=== PATIENT | female | born 1960 | race African-American/Black ===

== ENCOUNTER 2019-01-27 15:18 | Inpatient (IN) | payer MEDICAID ==
[~2019-01-27] VITALS: Ht 154.9 cm; Wt 164.7 kg
[2019-01-27 16:57] LABS: CHLORIDE 105 mEq/L (98-107)
[2019-01-27 16:58] LABS: BASOPHILS % 0.5 % (0.0-2.0); EOSINOPHILS % 1.1 % (0.0-5.0); HEMATOCRIT. 35.1 % (36.0-48.0); HEMOGLOBIN. 10.9 g/dL (12.0-16.0); LYMPHOCYTES % 26.4 % (20.0-50.0); MEAN CORPUSCULAR HEMOGLOBIN 23.8 pg (28.0-32.0); MEAN CORPUSCULAR VOLUME 76.9 fL (81.0-99.0); MEAN PLATELET VOLUME 9.1 fl (7.4-10.4); PLATELET 298 x1000/uL (130-400); RED BLOOD CELL COUNT 4.57 mill/uL (4.2-5.4); RED CELL DISTRIBUTION WIDTH 17.2 % (11.6-14.6)
[2019-01-27] MEDS ORDERED: MORPHINE SULFATE 4 MG/ML CPJ (NOT FOR IM USE) IV ONE (20:30)
[2019-01-27] MEDS ORDERED: ONDANSETRON HCL 4MG/2ML INJ IV ONE (20:30)
[2019-01-27] MEDS ORDERED: IOHEXOL-350 100 ML BOTTLE ONE (20:32)
[2019-01-27] MEDS ORDERED: HYDROMORPHONE HCL/PF 2MG/ML CPJ IV NR (23:00)
[2019-01-28] MEDS ORDERED: HYDROMORPHONE HCL/PF 2MG/ML CPJ IV ONE ×2 (02:30→05:45)
[2019-01-28] MEDS ORDERED: VANCOMYCIN 1 G PREMIX 200 ML IV NR (02:45)
[2019-01-28] MEDS ORDERED: IOHEXOL-300 100 ML BOTTLE ONE (03:58)
[2019-01-28] MEDS ORDERED: IOHEXOL-350 100 ML BOTTLE ONE (03:59)
[2019-01-28 08:00] VITALS: BP 149/85
[2019-01-28] MEDS ORDERED: ENOXAPARIN 40MG/0.4ML SYR SUBCUT SCH (10:00)
[2019-01-28] MEDS ORDERED: GUAIFENESIN 200MG/10ML SUGAR FREE UDC PO PRN (10:00)
[2019-01-28] MEDS ORDERED: LORAZEPAM 0.5MG TABLET PO PRN (10:00)
[2019-01-28] MEDS ORDERED: DIPHENHYDRAMINE 50MG/ML VIAL IV PRN (10:00)
[2019-01-28] MEDS ORDERED: MAGNESIUM/ALUMINUM HYDROXIDE/SIMETHICONE 30ML UDC PO PRN (10:00)
[2019-01-28] MEDS ORDERED: NITROGLYCERIN 0.4MG TABLET SL SL PRN (10:00)
[2019-01-28] MEDS ORDERED: IPRATROPIUM/ALBUTEROL 0.5-3(2.5)MG/3ML NEB INH PRN (10:00)
[2019-01-28] MEDS ORDERED: ACETAMINOPHEN 325MG TABLET PO PRN (10:00)
[2019-01-28] MEDS ORDERED: DOCUSATE SODIUM 100MG CAPSULE PO PRN (10:00)
[2019-01-28 10:03] VITALS: BP 149/85
[2019-01-28 10:35] LABS: HEMATOCRIT 36.2 % (36.0-48.0); HEMOGLOBIN 11.1 g/dL (12.0-16.0); MEAN CORPUSCULAR HEMOGLOBIN 23.7 pg (28.0-32.0); MEAN CORPUSCULAR VOLUME 77.1 fL (81.0-99.0); PLATELET 254 x1000/uL (130-400); RED BLOOD CELL COUNT 4.69 mill/uL (4.2-5.4); RED CELL DISTRIBUTION WIDTH 17.3 % (11.6-14.6)
[2019-01-28] MEDS: FAMOTIDINE 20MG TABLET PO SCH ×2 (10:55→20:27)
[2019-01-28] MEDS: GUAIFENESIN 600MG ER TABLET PO SCH ×2 (10:55→20:27)
[2019-01-28] MEDS: ENOXAPARIN 40MG/0.4ML SYR SUBCUT SCH ×2 (10:56→20:27)
[2019-01-28] MEDS: KETOROLAC 30MG/ML VIAL IV PRN ×3 (10:57→23:20)
[2019-01-28] MEDS: BACLOFEN 20MG TABLET PO SCH ×3 (10:58→21:17)
[2019-01-28 12:09] VITALS: BP 144/84
[2019-01-28] MEDS ORDERED: IBUP-2030 MT (12:37)
[2019-01-28] MEDS ORDERED: METH500T6 MT (12:38)
[2019-01-28] MEDS ORDERED: DICL75TA5 MT (12:39)
[2019-01-28 13:50] LABS: FOLIC ACID (FOLATE) SERUM 17.9 ng/mL (>5.38)
[2019-01-28 15:35] VITALS: BP 138/86
[2019-01-28] MEDS ORDERED: ALBU05 IH (16:28)
[2019-01-28 20:00] VITALS: BP 150/80
[2019-01-28] MEDS ORDERED: ZOLPIDEM TARTRATE 5MG TABLET PO PRN (21:00)
[2019-01-29] VITALS: BP 133/55
[2019-01-29 04:00] VITALS: BP 123/63
[2019-01-29] MEDS: BACLOFEN 20MG TABLET PO SCH ×3 (05:46→21:43)
[2019-01-29] MEDS: KETOROLAC 30MG/ML VIAL IV PRN ×3 (07:30→20:27)
[2019-01-29 08:00] VITALS: BP 130/82
[2019-01-29] MEDS: LACTULOSE 20G/30ML UDC PO SCH (08:35)
[2019-01-29] MEDS: GUAIFENESIN 600MG ER TABLET PO SCH ×2 (08:35→20:26)
[2019-01-29] MEDS: ENOXAPARIN 40MG/0.4ML SYR SUBCUT SCH ×2 (08:35→20:28)
[2019-01-29] MEDS: FAMOTIDINE 20MG TABLET PO SCH ×2 (08:35→20:26)
[2019-01-29] MEDS: FERROUS SULFATE 300MG/5ML UDC PO SCH ×3 (08:35→16:55)
[2019-01-29 12:00] VITALS: BP 149/71
[2019-01-29] MEDS: ONDANSETRON HCL 4MG/2ML INJ IV PRN ×2 (12:55→20:28)
[2019-01-29 16:00] VITALS: BP 136/72
[2019-01-29] MEDS: TRAMADOL 50MG TABLET PO PRN (16:51)
[2019-01-29 20:00] VITALS: BP 152/85
[2019-01-30] VITALS: BP 104/50
[2019-01-30] MEDS: KETOROLAC 30MG/ML VIAL IV PRN ×3 (02:51→17:20)
[2019-01-30 04:00] VITALS: BP 109/70
[2019-01-30] MEDS: BACLOFEN 20MG TABLET PO SCH ×3 (06:19→21:30)
[2019-01-30] MEDS: FERROUS SULFATE 300MG/5ML UDC PO SCH ×3 (08:46→17:19)
[2019-01-30] MEDS: GUAIFENESIN 600MG ER TABLET PO SCH ×2 (08:46→20:18)
[2019-01-30] MEDS: FAMOTIDINE 20MG TABLET PO SCH ×2 (08:46→20:19)
[2019-01-30] MEDS: ENOXAPARIN 40MG/0.4ML SYR SUBCUT SCH ×2 (08:47→20:20)
[2019-01-30] MEDS: LACTULOSE 20G/30ML UDC PO SCH (09:13)
[2019-01-30] MEDS ORDERED: LIDOCAINE HCL 1% 20ML VIAL (Pyxis) INJ ONE (11:21)
[2019-01-30] MEDS: ONDANSETRON HCL 4MG/2ML INJ IV PRN (13:34)
[2019-01-30] MEDS: TRAMADOL 50MG TABLET PO PRN ×2 (13:35→21:30)
[2019-01-30 20:00] VITALS: BP 146/77
[2019-01-31] VITALS: BP 146/81
[2019-01-31 04:00] VITALS: BP 139/86
[2019-01-31] MEDS: KETOROLAC 30MG/ML VIAL IV PRN ×2 (05:47→14:26)
[2019-01-31] MEDS: BACLOFEN 20MG TABLET PO SCH ×3 (05:57→21:41)
[2019-01-31 08:00] VITALS: BP 171/76
[2019-01-31] MEDS: LACTULOSE 20G/30ML UDC PO SCH (08:15)
[2019-01-31] MEDS: FAMOTIDINE 20MG TABLET PO SCH ×2 (08:15→21:01)
[2019-01-31] MEDS: GUAIFENESIN 600MG ER TABLET PO SCH ×2 (08:15→21:01)
[2019-01-31] MEDS: ENOXAPARIN 40MG/0.4ML SYR SUBCUT SCH ×2 (08:16→21:02)
[2019-01-31] MEDS: CLONIDINE 0.1MG TABLET PO PRN (08:39)
[2019-01-31] MEDS: FERROUS SULFATE 300MG/5ML UDC PO SCH ×3 (08:40→17:40)
[2019-01-31] MEDS: TRAMADOL 50MG TABLET PO PRN (10:47)
[2019-01-31 12:00] VITALS: BP 165/86
[2019-01-31] MEDS: AMLODIPINE 5MG TABLET PO SCH ×2 (12:28→17:40)
[2019-01-31 16:00] VITALS: BP 145/70
[2019-01-31 20:00] VITALS: BP 145/70
[2019-01-31 22:29] LABS: CHLORIDE 107 mEq/L (98-107)
[2019-01-31 22:30] LABS: BASOPHILS % 0.4 % (0.0-2.0); EOSINOPHILS % 0.9 % (0.0-5.0); HEMATOCRIT. 31.4 % (36.0-48.0); HEMOGLOBIN. 9.8 g/dL (12.0-16.0); LYMPHOCYTES % 20.5 % (20.0-50.0); MEAN CORPUSCULAR HEMOGLOBIN 23.8 pg (28.0-32.0); MEAN CORPUSCULAR VOLUME 75.6 fL (81.0-99.0); MEAN PLATELET VOLUME 9.4 fl (7.4-10.4); MONOCYTES % 9.1 % (2.0-8.0); NEUTROPHILS % 69.1 % (40.0-76.0); PLATELET 296 x1000/uL (130-400); RED BLOOD CELL COUNT 4.15 mill/uL (4.2-5.4)
[2019-02-01] VITALS: BP 146/71
[2019-02-01] MEDS: KETOROLAC 30MG/ML VIAL IV PRN ×2 (00:21→14:43)
[2019-02-01 04:00] VITALS: BP 144/80
[2019-02-01] MEDS: BACLOFEN 20MG TABLET PO SCH ×2 (05:57→15:27)
[2019-02-01 07:31] LABS: BASOPHILS % 0.4 % (0.0-2.0); EOSINOPHILS % 0.8 % (0.0-5.0); HEMOGLOBIN. 9.8 g/dL (12.0-16.0); LYMPHOCYTES % 21.5 % (20.0-50.0); MEAN CORPUSCULAR HEMOGLOBIN 23.1 pg (28.0-32.0); MEAN CORPUSCULAR VOLUME 75.7 fL (81.0-99.0); MONOCYTES % 8.4 % (2.0-8.0); NEUTROPHILS % 68.9 % (40.0-76.0); RED BLOOD CELL COUNT 4.23 mill/uL (4.2-5.4); RED CELL DISTRIBUTION WIDTH 16.6 % (11.6-14.6)
[2019-02-01 07:39] LABS: CHLORIDE 108 mEq/L (98-107)
[2019-02-01] MEDS: FERROUS SULFATE 300MG/5ML UDC PO SCH ×2 (07:50→12:50)
[2019-02-01 08:00] VITALS: BP 110/90
[2019-02-01] MEDS: LACTULOSE 20G/30ML UDC PO SCH (08:26)
[2019-02-01] MEDS: GUAIFENESIN 600MG ER TABLET PO SCH (08:26)
[2019-02-01] MEDS: FAMOTIDINE 20MG TABLET PO SCH (08:26)
[2019-02-01] MEDS: AMLODIPINE 5MG TABLET PO SCH ×2 (08:27→16:35)
[2019-02-01] MEDS: ENOXAPARIN 40MG/0.4ML SYR SUBCUT SCH (08:33)
[2019-02-01 10:47] LABS: MEAN PLATELET VOLUME 9.5 fl (7.4-10.4); PLATELET 279 x1000/uL (130-400)
[2019-02-01 12:00] VITALS: BP 167/85
[2019-02-01] MEDS: CLONIDINE 0.1MG TABLET PO PRN (14:43)
[2019-02-01 15:14] VITALS: BP_SYST 136; BP_SYST 158; BP_DIAS 67; BP_DIAS 83
[2019-02-01 16:00] VITALS: BP 164/88
== END 2019-02-01 17:03 | disposition home or self-care (01) | DRG 347 ==
LOC: ER 15:18 → 6EST 01-28 04:45 → EDBEDREQSVC 01-28 04:50 → ENRESERV 01-28 07:08
PROVIDERS: ADMIT Internal Medicine; ATTEND Internal Medicine
PROC: 05H533Z Insertion of Infusion Device into Right Subclavian Vein, Percutaneous Approach (ICD-10-PCS; principal; 2019-01-30)
PROC: B546ZZA Ultrasonography of Right Subclavian Vein, Guidance (ICD-10-PCS; 2019-01-30)
DX: M46.44 Discitis, unspecified, thoracic region (principal); E44.1 Mild protein-calorie malnutrition; E66.01 Morbid (severe) obesity due to excess calories; Z68.44 Body mass index [BMI] 60.0-69.9, adult; D63.8 Anemia in other chronic diseases classified elsewhere; I10 Essential (primary) hypertension; J45.909 Unspecified asthma, uncomplicated; M19.90 Unspecified osteoarthritis, unspecified site
CPT/HCPCS: 36415; 36569; 71045; 71275; 76937; 78806; 80048; 80061; 82607; 82746; 83036; 83540; 83550; 83880; 84484; 85027; 85651; 86140; 93005; 93970; 94640; 96374; 99285; A9547; C1725; C1769; J1170; J1650; J1885; J2270; J2405; J3370; J3490; J7040; J7620; Q9967